=== PATIENT | male | born 1990 | race African-American/Black ===

== ENCOUNTER 2017-11-01 18:42 | Emergency (ER) | payer SELFPAY ==
[2017-11-01 19:03] VITALS: BP 157/90; PULSE 105; TEMP 100.1; BMI 33.5
--- NOTE | 2017-11-01 19:56 | PDOC ---
History of Present Illness - General Chief Complaint: Abscess Boil Stated Complaint: CYST Time Seen by Provider: 11/01/17 19:49 History Source: Patient Exam Limitations: No Limitations - History of Present Illness Initial Comments: CHIEF COMPLAINT: 27 y/o febrile, tachycardic male c/o left buttock pain x 4 days. HISTORY OF PRESENT ILLNESS: The patient states he thinks he has an abscess. He noticed a fever yesterday. He denies all other symptoms. He is not a diabetic. Vital signs on arrival are notable for pulse of 105 secondary to temp of 100.1. REVIEW OF SYSTEMS: GENERAL/CONSTITUTIONAL: +fever. No weakness. No weight change. GENITOURINARY: No dysuria, frequency, or change in urination. MUSCULOSKELETAL: No joint or muscle swelling or pain. No neck or back pain. SKIN: +painful bump to left buttock NEUROLOGIC: No headache, vertigo, loss of consciousness, or loss of sensation. PHYSICAL EXAM: GENERAL: The patient is awake, alert, and fully oriented, in no acute distress. HEAD: Normal with no signs of trauma. NEUROLOGICAL: Normal speech, normal gait. CN II-XII grossly intact. SKIN: 4cm indurated abscess to left superior gluteal fold with fluctuant center without active drainage. No rectal wall involvement. No streaking. Past History - Past Medical History Allergies/Adverse Reactions: Allergies Allergy/AdvReac Type Severity Reaction Status Date / Time No Known Allergies Allergy Verified 11/01/17 18:59 Home Medications: Ambulatory Orders Cephalexin [Keflex] 500 mg PO TID #21 capsule 11/01/17 Sulfamethoxazole/Trimethoprim [Bactrim Ds -] 1 tab PO BID #14 tablet 11/01/17 CVA: No COPD: No DVT: No Dementia: No Diabetes: No - Immunization History Immunization Up to Date: Yes - Suicide/Smoking/Psychosocial Hx Smoking History: Never smoked Hx Alcohol Use: No Drug/Substance Use Hx: Yes (marijuana) Substance Use Type: None *Physical Exam - Vital Signs Last Vital Signs Temp Pulse Resp BP Pulse Ox 100.1 F H 105 H 18 157/90 100 11/01/17 19:00 11/01/17 19:00 11/01/17 19:00 11/01/17 19:00 11/01/17 19:00 Procedures - Incision and Drainage I&D Site: Left: Buttock Anesthesia: 1% Lidocaine w/ Epi Volume(ml): 3 Blade Size: 10 Iodinated Packin/ in Complications: none Dressing: Yes Medical Decision Making - Medical Decision Making A/P: 27 y/o male with left buttock abscess. Will I&D. Will send wound culture. Will discharge to home with rx for bactrim and keflex. One dose of ancef given in the ER. Instructed the patient to return in 2 days to have packing removed and return sooner if fever does not improve or area worsens. The patient verbalizes understanding of all instructions, has no further questions and is awaiting discharge. *DC/Admit/Observation/Transfer Diagnosis at time of Disposition: Abscess - Discharge Dispostion Disposition: HOME Condition at time of disposition: Improved - Referrals - Patient Instructions Printed Discharge Instructions: DI for Incision and Drainage of a Skin Abscess Additional Instructions: Discharge Instructions: -2 prescriptions for antibiotics have been sent to your pharmacy; please take as prescribed -Keep area covered and dry for 24 hours. -REturn to the ER in 2 days to have packing removed -Return to the ER sooner if symptoms worsen - Post Discharge Activity Forms/Work/School Notes: Back to Work
[2017-11-01] MEDS ORDERED: ceFAZolin SODIUM 1 GM VIAL IM ONE (20:01)
[2017-11-01] MEDS ORDERED: LIDOCAINE 1%/EPI 1:100000 (20 ML MULTI DOSE VIAL) ONE (20:03)
[2017-11-01] MEDS ORDERED: ceFAZolin SODIUM 1 GM VIAL ONE (20:14)
[2017-11-01] MEDS ORDERED: WATER FOR INJ,STERILE 10 ML ONE (20:22)
== END 2017-11-01 20:52 | disposition home or self-care (01) ==
LOC: JERFT 18:42
PROC: 0H98XZZ Drainage of Buttock Skin, External Approach (ICD-10-PCS; principal; 2017-11-01)
PROC: 3E02329 Introduction of Other Anti-infective into Muscle, Percutaneous Approach (ICD-10-PCS; 2017-11-01)
DX: L02.31 Cutaneous abscess of buttock (principal)
CPT/HCPCS: 87070; 87076; 87077; 87186; 87205; 99282-25

== ENCOUNTER 2019-07-24 18:30 | Emergency (ER) | payer SELFPAY ==
[2019-07-24 18:43] VITALS: BP 160/98; PULSE 82; TEMP 99.7; BMI 33.6
--- NOTE | 2019-07-24 18:48 | PDOC ---
History of Present Illness - General Chief Complaint: Toothache Stated Complaint: TOOTH ACHE RT SIDE Time Seen by Provider: 07/24/19 18:37 History Source: Patient Exam Limitations: No Limitations - History of Present Illness Initial Comments: 07/24/19 18:50 HISTORY OF PRESENT ILLNESS: 29-year-old male denies medical history presents emergency department for evaluation of toothache for 2 days. Patient states he contacted his dentist and was given an appointment in August. Patient denies any fevers/chills or foul taste in his mouth. No recent travel or sick contacts. PAST MEDICAL HISTORY: Denies past medical history SURGICAL HISTORY: Denies ALLERGIES: No known drug allergies REVIEW OF SYSTEMS General/Constitutional: Denies fever or chills. Denies weakness, weight change. HEENT: See HPI Cardiovascular: Denies chest pain or shortness of breath. Respiratory: Denies cough, wheezing, or hemoptysis. Gastrointestinal: Denies nausea, vomiting, diarrhea or constipation. Denies rectal bleeding. Genitourinary: Denies dysuria, frequency, or change in urination. Musculoskeletal: Denies joint or muscle swelling or pain. Denies neck or back pain. Skin and breasts: Denies rash or easy bruising. Neurologic: Denies headache, vertigo, loss of consciousness, or loss of sensation. Psychiatric: Denies depression or anxiety. Endocrine: Denies increased thirst. Denies abnormal weight change. Hematologic/Lymphatic: Denies anemia, easy bleeding, or history of blood clots. Allergic/Immunologic: Denies hives or skin allergy. Denies latex allergy. PHYSICAL EXAM General Appearance: Well-appearing, appropriately dressed. No apparent distress , no intoxication. HEENT: EOMI, PERRLA, normal ENT inspection, normal voice, TMs normal, pharynx normal. No conjunctival pallor. No photophobia, scleral icterus. Poor dentition present. Multiple dental caries noted. Swelling to the buccal aspect of the gingival surface above tooth #4. Unable to express from swelling. Full range of motion of mandible. Neck: Supple. Trachea midline. No tenderness, rigidity, carotid bruit, stridor , lymphadenopathy, or thyromegaly. Respiratory/Chest: Lungs CTAB. No shortness of breath, chest tenderness, respiratory distress, accessory muscle use. No crackles, rales, rhonchi, stridor , wheezing, dullness Cardiovascular: RRR. S1, S2. No JVD, murmur, bradycardia, tachycardia. Neurologic: pattern and chain maker II-XII intact. Fully oriented, alert. Appropriate mood/affect. Motor strength 5/5. No appreciable EOM palsy, facial droop or sensory deficit. 07/24/19 18:52 Past History - Past Medical History Allergies/Adverse Reactions: Allergies Allergy/AdvReac Type Severity Reaction Status Date / Time No Known Allergies Allergy Verified 07/24/19 18:36 Home Medications: Ambulatory Orders Penicillin V Potassium [Pen Vee K -] 500 mg PO QID #28 tablet 07/24/19 CVA: No COPD: No DVT: No Dementia: No Diabetes: No - Immunization History Immunization Up to Date: Yes - Psycho Social/Smoking Cessation Hx Smoking History: Never smoked Have you smoked in the past 12 months: No Hx Alcohol Use: No Drug/Substance Use Hx: Yes (marijuana) Substance Use Type: None *Physical Exam - Vital Signs Last Vital Signs Temp Pulse Resp BP Pulse Ox 99.7 F H 82 18 160/98 99 07/24/19 18:33 07/24/19 18:33 07/24/19 18:33 07/24/19 18:33 07/24/19 18:33 Medical Decision Making - Medical Decision Making 07/24/19 18:49 A/P: 29-year-old male with toothache to right upper molar Poor dentition noted Mild swelling present to the buccal aspect of the gingival surface Unable to express fluid from swollen gingiva Discharge patient home with prescription for Pen-Vee K and instructions to follow-up with dentist for definitive treatment. I discussed the physical exam findings, ancillary test results and final diagnoses with the patient. I answered all of the patient's questions. The patient was satisfied with the care received and felt comfortable with the discharge plan and treatment plan. The patient will call their primary care physician within 24 hours to arrange follow-up and will return to the Emergency Department with any new, persistent or worsening symptoms. Discharge - Discharge Information Problems reviewed: Yes Clinical Impression/Diagnosis: Toothache Condition: Stable Disposition: HOME - Admission No - Additional Discharge Information Prescriptions: Penicillin V Potassium [Pen Vee K -] 500 mg PO QID #28 tablet - Follow up/Referral - Patient Discharge Instructions Additional Instructions: Rest, drink lots of fluids: Teas, water, soups Saltwater gargles/ keep mouth clean and rinse after each meal May use wet teabag for pain relief to area Avoid hard chewing foods, stick to ice cream, Jell-O, yogurt etc. Tylenol or Motrin for fever and pain Complete all medication as prescribed Call [facility] at [phone] Followup with private physician in one to 2 days as needed Return to emergency department for worsened symptoms, fevers, swelling to face or worsened pain - Post Discharge Activity Work/Back to School Note: Back to Work
== END 2019-07-24 18:52 | disposition home or self-care (01) ==
LOC: JERFT 18:30 → JER 18:30 → JERFT 18:52
DX: K08.89 Other specified disorders of teeth and supporting structures (principal)
CPT/HCPCS: 99281-25

== ENCOUNTER 2021-06-24 14:58 | Emergency (ER) | payer SELFPAY ==
[2021-06-24 15:14] VITALS: BP 160/91; PULSE 105; TEMP 98.6; BMI 36.0
== END 2021-06-24 16:32 | disposition home or self-care (01) ==
LOC: JER 14:58
DX: Z11.52 Encounter for screening for COVID-19 (principal)
CPT/HCPCS: 87804; 99283-25; C9803; U0003; U0005